=== PATIENT | female | born 1990 | race Caucasian/White ===

== ENCOUNTER 2024-06-18 04:39 | Emergency (ER) | payer MEDICAID ==
[~2024-06-18] VITALS: Ht 180.3 cm; Wt 115.5 kg
[2024-06-18] MEDS: acetaminophen 325mg tablet PO ONE (05:18)
[2024-06-18] MEDS ORDERED: dexamethasone 4mg tablet PO ONE (05:50)
[2024-06-18] MEDS: azithromycin 250mg tablet PO ONE (05:51)
[2024-06-18] MEDS: DEXAMETHASONE 6 MG TABLET PO ONE (05:53)
[2024-06-18] MEDS ORDERED: AZIT-164 PO (05:57)
[2024-06-18] MEDS ORDERED: NAPR-56 PO (05:57)
[2024-06-18 06:09] VITALS: BP 135/82; PULSE 99; RESP 16; TEMP 98.1; O2SAT 99
== END 2024-06-18 06:13 | disposition home or self-care (01) ==
LOC: ER 04:40
DX: U07.1 COVID-19 (principal); H66.92 Otitis media, unspecified, left ear; E11.9 Type 2 diabetes mellitus without complications; E03.9 Hypothyroidism, unspecified; Z79.2 Long term (current) use of antibiotics; Z79.899 Other long term (current) drug therapy; Z98.890 Other specified postprocedural states
CPT/HCPCS: 36415; 87502; 87503; 87811; 99284; J8540